=== PATIENT | male | born 1965 | race Caucasian/White ===

== ENCOUNTER → 2023-09-27 14:40 | Outpatient (REF) | payer BC, SELFPAY | LOC: HWRAD 14:40 | PROVIDERS: ATTENDING PHYSICIAN Student in an Organized Health Care Education/Training Program | DX: R59.0 Localized enlarged lymph nodes (principal) | CPT/HCPCS: 74177; Q9967 ==

== ENCOUNTER → 2023-10-05 07:36 | Outpatient (REF) | payer BC, SELFPAY | LOC: MRI 07:36 | PROVIDERS: ATTENDING PHYSICIAN Student in an Organized Health Care Education/Training Program | DX: K86.9 Disease of pancreas, unspecified (principal) | CPT/HCPCS: 74183 ==

== ENCOUNTER → 2024-03-04 06:34 | Day surgery (SDC) | payer BC, SELFPAY | LOC: GI 06:34 | PROVIDERS: ATTENDING PHYSICIAN Internal Medicine Gastroenterology | DX: R10.9 Unspecified abdominal pain (principal); R19.4 Change in bowel habit; K64.0 First degree hemorrhoids; R10.84 Generalized abdominal pain; K63.5 Polyp of colon; K57.30 Diverticulosis of large intestine without perforation or abscess without bleeding | CPT/HCPCS: 45380; 88305 ==

== ENCOUNTER 2025-01-19 10:13 | Emergency (ER) | payer BC, SELFPAY ==
[2025-01-19 10:17] VITALS: BP 182/107
[2025-01-19] MEDS: VALIUM 5 MG PO (12:09)
[2025-01-19] MEDS: TORADOL 30 MG IM (12:09)
--- NOTE | 2025-01-19 12:31 | ED.GENMED ---
History of Present Illness
General
Chief Complaint: Back Pain
Source: patient
Exam Limitations: none
Time Seen by Provider: 01/19/25 11:25
History of Present Illness
History of Present Illness:
59-year-old male presents complaining of lower back pain that radiates down the left leg. This started 2 days ago. He has been trying ibuprofen without relief. He has a history of this remotely which ultimately required an epidural steroid
injection. He denies bowel or bladder dysfunction. No fever. The pain is made worse with prolonged weightbearing. He actually states today is a little bit better than it was yesterday
Past History
Past History
ED Past Medical History: None
ED Past Surgical History: None
Social History
Tobacco: Non-smoker
Alcohol: None
Drug: None
Phy Exam
Physical Exam
Physical Exam:
General: Well-appearing male no acute respiratory distress HEENT: Normocephalic atraumatic
Musculoskeletal exam: No significant reproducible tenderness to the lumbar spine
Neurologic exam: Good strength and sensation to the lower extremities bilaterally. Bilateral patellar reflexes 1+ positive straight leg raise left lower extremity
Vascular: 2+ DP pulse bilaterally
Extremities: No cyanosis
Course
Orders/Labs/Results
Orders:
Orders
01/19/25 11:49
Diazepam [Valium] 5 mg PO NOW STA
Ketorolac [Toradol] 30 mg IM NOW STA
Vital Signs
Initial and Last Documented VS:
Initial Vital Signs
Temp Pulse Resp BP Pulse Ox
98.0 F 73 18 182/107 99
01/19/25 10:17 01/19/25 10:17 01/19/25 10:17 01/19/25 10:17 01/19/25 10:17
Last Documented Vital Signs
Temp Pulse Resp BP Pulse Ox
98.0 F 73 18 182/107 99
01/19/25 10:17 01/19/25 10:17 01/19/25 10:17 01/19/25 10:17 01/19/25 10:17
MDM/Problems Addressed
Differential Diagnosis Includes:
Left lower leg and back pain. Suspect radiculopathy. No sign of cauda equina. No fever infectious source. He is ambulatory but with discomfort. No trauma. X-rays would not be helpful today. Given Toradol and Valium here but will send home
with prednisone and medicine for discomfort
*Critical Care Note
Total Time (30-74mins, 75-104mins- exclusive of procedures): Not Applicable
ED Attending Note
-
Portions of this chart may have been created with voice recognition software.� Occasional wrong word or��sound alike� substitutions may have occurred due to the inherent limitations of voice recognition software.
Discharge Plan
Departure
Patient Disposition: Home (Routine Discharge)
Date of Disposition: 01/19/25
Time of Disposition: 12:35
Patient with high blood pressure during this ER visit?: No
Discharge Problem:
Acute lumbar radiculopathy
Instructions: Radiculopathy (DC)
Prescriptions:
New
prednisone 10 mg Tablet
See Rx Instructions .ROUTE .COMPLEX Qty: 30 0RF
Rx Instructions:
Take By Mouth:
40 mg daily x3 days, 30 mg daily x3 days,
20 mg daily x3 days, 10 mg daily x3 days.
diazepam [Valium] 5 mg tablet
5 mg PO TID PRN (Reason: muscle spasm) Qty: 10 0RF
Referrals:
Mariela Dhillon PA-C [Family Provider] -
Activity Restrictions/Additional Instructions:
Rest. Continue with Tylenol. Add prednisone and muscle relaxer as needed. Return if worse otherwise follow-up with your doctor
Interventions
Interventions:
*Risk Screen - Suicide Last Done: 01/19/25 10:17
*General Assessment Last Done: 01/19/25 10:17
*Neglect/Abuse Screening Last Done: 01/19/25 10:17
*ED- Fall Risk Assessment Last Done: 01/19/25 11:27
*ED COVID-19 Vaccine History Last Done: 01/19/25 11:27
ED-Musculoskeletal Assessment Last Done: 01/19/25 11:27
Discharge Date and Time
Print Language: WOLOF
[2025-01-19 12:52] VITALS: BP 165/90
== END 2025-01-19 12:57 | disposition home or self-care (01) ==
LOC: EMR 10:13
PROVIDERS: EMERGENCY PHYSICIAN Emergency Medicine; FAMILY PHYSICIAN Student in an Organized Health Care Education/Training Program
DX: M54.16 Radiculopathy, lumbar region (principal); M79.605 Pain in left leg; Z88.0 Allergy status to penicillin
CPT/HCPCS: 99284; 96372

== ENCOUNTER → 2025-03-20 12:19 | Outpatient (REF) | payer BC, SELFPAY | LOC: MRI 3T 12:19 | PROVIDERS: ATTENDING PHYSICIAN Student in an Organized Health Care Education/Training Program | DX: K86.9 Disease of pancreas, unspecified (principal) | CPT/HCPCS: 74183; A9575 ==